=== PATIENT | male | born 1950 | race Two or more races ===

== ENCOUNTER → 2016-11-04 | Outpatient (CLI) | payer MEDICARE, BC ==
--- NOTE | 2016-11-04 10:15 | RADRPT ---
PROCEDURE: XR right knee. CLINICAL INDICATION: Knee pain TECHNIQUE: AP weightbearing, PA weightbearing, lateral weight bearing and sunrise views are availa ble for review. COMPARISON: None available FINDINGS: There is moderate to severe osteoarthrosis involving the lateral tibial femoral compartment, mild to moderate osteoarthrosis patellofemoral compartment and mild osteoarthrosis involving the medial tib ial femoral compartment. This is associated with joint space narrowing, subchondral sclerosis and os teophytosis. There is otherwise normal mineralization, architecture and alignment. No fractures are identified. No osseous lesions are identified. The soft tissues are unremarkable. IMPRESSION: Moderate to severe osteoarthrosis involving the lateral tibial femoral compartment, mild to moderate osteoarthrosis patellofemoral compartment and mild osteoarthrosis involving the medial tibial femor al compartment. RPTAT: HGDB .Raul Estrada MD, Date Time Electronically viewed and signed by .Raul Estrada MD, on 11/04/2016 10:15 .B/
== END | disposition home or self-care (01) ==
LOC: HKI 08:43
PROVIDERS: ATTEND Orthopaedic Surgery
DX: M17.11 Unilateral primary osteoarthritis, right knee (principal); M25.561 Pain in right knee; E66.9 Obesity, unspecified
CPT/HCPCS: 73564; G0463

== ENCOUNTER → 2016-11-18 | Outpatient (CLI) | payer MEDICARE, BC ==
--- NOTE | 2016-11-18 15:47 | RADRPT ---
PROCEDURE: Limited x-ray of both lower extremities. CLINICAL INDICATION: Bilateral leg pain. TECHNIQUE: Single frontal view of both lower extremities was obtained from the hips to the calves. COMPARISON: Right knee radiographs dated 11/04/2016. FINDINGS: The hips are not well seen. There are moderate to severe degenerative changes of the right knee and mild degenerative changes of the left knee. IMPRESSION: 1. Is not well seen. 2. Moderate to severe degenerative changes of the right knee. 3. Mild degenerative changes of the left knee. RPTAT: QQ .Dave Scott MD, MD Date Time Electronically viewed and signed by .Dave Scott MD, MD on 11/18/2016 15:47 .R/
== END | disposition home or self-care (01) ==
LOC: HKI 09:42
PROVIDERS: ATTEND Orthopaedic Surgery
DX: Z01.818 Encounter for other preprocedural examination (principal); M17.11 Unilateral primary osteoarthritis, right knee; M25.561 Pain in right knee
CPT/HCPCS: 77073; G0463

== ENCOUNTER 2016-11-24 11:46 | Inpatient (IN) | payer MEDICARE, BC ==
[2016-11-23 12:03] VITALS: Ht 182.9 cm; Wt 115.0 kg
[~2016-11-24] VITALS: Ht 182.9 cm; Wt 115.0 kg
[2016-11-24] VITALS (22 sets, daily range): BP systolic 109–163; BP diastolic 64–82; PULSE 72–89; RESP 14–23
[~2016-11-24 11:46] MED LIST: EPHEDrine SULFATE 50 MG/5 ML SYG ONE
[2016-11-24] MEDS ORDERED: oxyCODONE (CR) 10 MG TAB [oxyCONTIN] X1 DOSE PO ONE (14:00)
[2016-11-24] MEDS ORDERED: LACTATED RINGER'S 1,000 ML IV SCH (14:00)
[2016-11-24] MEDS ORDERED: CELECOXIB 400 MG PO X1 DOSE PO ONE (14:00)
[2016-11-24] MEDS ORDERED: PREGABALIN 300 MG PO X1 PO ONE (14:00)
[2016-11-24] MEDS ORDERED: traMADOL 50 MG TAB X 1 DOSE PO ONE (14:00)
[2016-11-24] MEDS ORDERED: SOD CHLORIDE 0.9% IV ONE (14:00)
[2016-11-24] MEDS ORDERED: TRANEXAMIC ACID IV ONE (14:00)
[2016-11-24] MEDS ORDERED: CEFAZOLIN 2GM/50 ML (PMX) 50 ML X1 BEFORE INCISION IVPB ONE (14:00)
[2016-11-24] MEDS ORDERED: TRANEXAMIC ACID IVPB SCH (16:00)
[2016-11-24] MEDS ORDERED: BUPIVACAINE LIPOSOME/PF 266 MG/20 ML VIAL INFIL SCH (16:00)
[2016-11-24] MEDS ORDERED: EXPAREL NOTE (BUPIVICAINE LIPOSOMAL) XX SCH (16:00)
[2016-11-24] MEDS ORDERED: PAIN COCKTAIL-CEFUROXIME IRR SCH ×7 (16:00)
[2016-11-24] MEDS ORDERED: SOD CHLORIDE 0.9% IVPB SCH (16:00)
--- NOTE | 2016-11-24 16:15 | HPN ---
Date/Time of Note Date/Time of Note DATE: 11/24/16 TIME: 16:14 Interval H&P Admission Note Pt. seen H&P reviewed: No system changes No changes from H&P on 11/20/16 by ELMER Dejesus MD Nov 24, 2016 16:15
[2016-11-24] MEDS ORDERED: MIDAZOLAM 1 MG/ML 2 ML INJ ONE (16:35)
[2016-11-24] MEDS ORDERED: ONDANSETRON 4 MG INJ ONE (16:35)
[2016-11-24] MEDS ORDERED: METOCLOPRAMIDE 10 MG INJ ONE (16:35)
[2016-11-24] MEDS ORDERED: CEFAZOLIN 1 GM INJ ONE ×2 (16:35→17:00)
[2016-11-24] MEDS ORDERED: PROPOFOL 100 ML ONE (16:35)
[2016-11-24] MEDS ORDERED: DEXAMETHASONE 4 MG/ML 1 ML INJ ONE (16:35)
[2016-11-24] MEDS ORDERED: FENTAnyl 50 MCG/ML VIAL ONE (16:44)
[2016-11-24] MEDS ORDERED: VANCOMYCIN 1 GM INJ ONE ×2 (16:48→17:54)
[2016-11-24] MEDS ORDERED: SODIUM CL BACTERIOSTATIC 30 ML INJ ONE (16:50)
[2016-11-24] MEDS ORDERED: LOSA1TAB20 PO (17:34)
[2016-11-24] MEDS ORDERED: CITA-104 PO (17:34)
[2016-11-24] MEDS ORDERED: FENO145T19 PO (17:34)
[2016-11-24] MEDS ORDERED: ALLO300T2 PO (17:34)
[2016-11-24] MEDS ORDERED: METO-448 PO (17:34)
[2016-11-24] MEDS ORDERED: VIT D3 (17:34)
[2016-11-24] MEDS ORDERED: LEVO100T87 PO (17:34)
[2016-11-24] MEDS ORDERED: PANT40TA3 PO (17:34)
[2016-11-24] MEDS ORDERED: ATOR20TA65 PO (17:34)
[2016-11-24] MEDS ORDERED: SENN-88 PO (17:34)
[2016-11-24] MEDS ORDERED: POLYMYXIN B 500000 UNIT INJ ONE (17:53)
[2016-11-24] MEDS ORDERED: BACITRACIN 50000 UNITS INJ ONE (17:54)
[2016-11-24] MEDS ORDERED: MEPERIDINE 25 MG INJ IV PRN (18:00)
[2016-11-24] MEDS ORDERED: HYDROmorphONE (0.2 MG/ML) 10ML SYG IV PRN ×3 (18:00)
[2016-11-24] MEDS ORDERED: METOCLOPRAMIDE 10 MG INJ IV PRN (18:00)
[2016-11-24] MEDS ORDERED: ONDANSETRON 4 MG INJ IV PRN ×2 (18:00→19:30)
[2016-11-24] MEDS ORDERED: DIPHENHYDRAMINE 50 MG INJ IV PRN (18:00)
[2016-11-24] MEDS ORDERED: PROPOFOL 60 ML ONE (18:52)
[2016-11-24] MEDS: LACTATED RINGER'S 1,000 ML IV SCH (19:21)
--- NOTE | 2016-11-24 19:29 | PN ---
Date/Time of Note Date/Time of Note DATE: 11/24/16 TIME: 19:27 Assessment/Plan Lines/Catheters IV Catheter Type (from Nrsg): Saline Lock Assessment/Plan Assessment/Plan Stable in PACU, s/p right TKA -cont abx -pain meds as needed -ASA/SCDs for DVT prophylaxis -OOB with PT -check AM labs -monitor drain -d/c alfredo in AM XR of the right knee is pending at this time Subjective 24 Hr Interval Summary Stable in PACU. Moving all extremities. Denies any pain. Exam/Review of Systems Vital Signs Vitals Vital Signs Date Time Temp Pulse Resp B/P Pulse Ox O2 Delivery O2 Flow Rate FiO2 11/24/16 14:26 98.3 72 144/64 98 Intake and Output 11/23/16 11/23/16 11/24/16 15:00 23:00 07:00 Intake Total 0 ml Balance 0 ml Exam Free Text/Dictation Dressing dry Incision clean, dry, and intact without redness or drainage Thigh soft 5/5 Quadriceps, Tibialis Anterior, EHL, Gastroc, Soleus, Peroneals Normal sensation Palpable DT/PT, CR <2 sec No distal edema PETER HAMMOND PA-C Nov 24, 2016 19:29
--- NOTE | 2016-11-24 19:29 | OPPN ---
Date/Time of Note Date/Time of Note DATE: 11/24/16 TIME: 19:28 Operative/Procedure Note Dictation # [id number] Pre-Operative Diagnosis Right Knee OA Post-Operative Diagnosis Same Procedure Right TKA Surgeon: ELMER PICKARD MD [employer] Technician: PETER HAMMOND PA-C Anesthesiologist: REGINE DOBBS MD Findings Severe OA Blood Usage/Administration None Implants/Grafts Depuy Attune TKA Estimated blood loss: 50 - 100 ml's Drains Hemovac x 1 Specimens Bone and soft tissue Complications: None Anesthesia type: spinal ELMER PICKARD MD Nov 24, 2016 19:29
[2016-11-24] MEDS ORDERED: ASPIRIN (EC) 325 MG TAB PO ONE (19:30)
[2016-11-24] MEDS ORDERED: oxyCODONE 5 MG TAB PO PRN (19:30)
[2016-11-24] MEDS ORDERED: BISACODYL 10 MG SUPP PR PRN (19:30)
[2016-11-24] MEDS ORDERED: DIPHENHYDRAMINE 25 MG CAP PO PRN (19:30)
[2016-11-24] MEDS ORDERED: MAGNESIUM HYDROXIDE 30ML CUP PO PRN (19:30)
[2016-11-24] MEDS ORDERED: NACL 0.9% 3 ML SYG IV SCH (19:30)
[2016-11-24] MEDS ORDERED: HYDROmorphONE 1 MG/ML SYG IV PRN (19:30)
[2016-11-24] MEDS ORDERED: NA PHOSPHATE/BIPHOS 133 ML ENEMA PR PRN (19:30)
--- NOTE | 2016-11-24 19:41 | OPR ---
DATE OF OPERATION: PREOPERATIVE DIAGNOSIS: Right knee osteoarthritis. POSTOPERATIVE DIAGNOSIS: Right knee osteoarthritis. OPERATION PERFORMED: Right total knee arthroplasty. SURGEON: Elmer Pickard MD RN LABOR DELIVERY: NARCISA Fay COMPONENTS USED: DePuy Attune size 8 femoral component, size 8 tibial baseplate , 5 mm polyethylene insert and a 41 patellar button. ANESTHESIA: Spinal plus general endotracheal intubation plus periarticular injection. ANESTHESIOLOGIST: Mamta Fletcher MD TOURNIQUET TIME: 70 minutes. ESTIMATED BLOOD LOSS: 50 mL INTRAVENOUS FLUIDS: 2400 mL crystalloid. SPECIMENS: Bone and soft tissue. DRAINS: Hemovac x1. COMPLICATIONS: None. DISPOSITION: The patient tolerated the procedure well, was taken to the recovery room in stable condition. INDICATIONS: The patient is a 66-year-old gentleman who has had progressive worsening pain in the right knee with radiographic evidence of severe osteoarthritis. He has failed nonsurgical means of treatment to control his pain including activity modifications, pain medications, intra-articular injections and ambulatory assist devices. Despite these measures, he has had worsening pain, and I felt he would benefit from a total knee arthroplasty. The risks, benefits, and alternatives of the procedure were explained in detail to the patient. I explained the risks of the surgery to include but not be limited to, bleeding and possible need for blood transfusion; infection; pain; stiffness; neurovascular injury with possible numbness, weakness, and/or paralysis anywhere from the knee down to the toes; fracture; instability; dislocation; wear and/or loosening of the prosthesis and possible need for future revision; blood clots; pulmonary embolism; and anesthetic complications such as heart attack, stroke, GI bleed, pneumonia, and/or . Ample time was allowed for the patient to ask questions, all of which were addressed and answered. The patient understood the risks involved and wished to proceed. Informed consent was signed prior to the procedure. PROCEDURE: The patient's right knee was initialed with a marking pen in the preoperative area to identify the correct operative site. The patient was brought to the operating room and transferred from the [facility] to the operating table where a spinal anesthetic was administered. The patient was then anesthetized and intubated. A Champagne catheter was placed. A timeout was performed to confirm that the right leg was the correct operative site. The patient was given 2 g of Ancef within one hour prior to the procedure. A tourniquet was placed on the operative proximal thigh. The operative knee and lower extremity were prepped and draped in the usual sterile fashion. The operative lower extremity was elevated and exsanguinated with an Esmarch tourniquet. The proximal thigh tourniquet was inflated to 300 mmHg. The knee was flexed. A midline incision was made and carried down through the subcutaneous tissue and fat with sharp dissection. Limited medial and lateral flaps were raised. A median parapatellar arthrotomy approach was performed. Synovial fluid was normal in color and consistency. The patella was everted and the knee flexed. There were severe tricompartmental osteoarthritic changes noted. A medial release was performed at the joint line to the midcoronal plane. The ACL and PCL and remnants of the menisci were excised. The stepped drill was used to open up the femoral canal which was irrigated and sucked dry. The intramedullary guide emelyn was passed up the femur, and the distal cutting block was pinned into place for a 6-degree valgus cut, taking 10 mm of bone off distally. The oscillating saw was used to make the cut. The tibia was subluxed anteriorly. The tibial cutoff jig was placed over the center of the talus distally and over the junction of the medial and middle third of the tibial tubercle proximally. The guide was pinned into place and the oscillating saw was used to make the cut. The tibia was sized. The extension gap was checked and accommodated a 5 mm spacer block with the knee in full extension. There was no varus or valgus instability. At this point, the femur was sized with the posterior referencing guide. Two holes were drilled in 3 degrees of external rotation. The two holes were in line with the transepicondylar axis, perpendicular to Coffee's line, and in line with the tibial cutoff jig brought up with the knee flexed 90 degrees and tensed with 2 lamina spreaders, suggesting the femoral rotation was correct. The four-in-one cutting block was pinned into place. The anterior and posterior cuts and chamfer cuts were made with the oscillating saw. The flexion gap was checked and accommodated the 5 mm spacer block at 90 degrees. There was no varus or valgus instability, suggesting the flexion and extension gaps were now equal. The central box was cut out on the femur. The tibia was drilled and punched in proper rotation. Trial components were placed into position with a trial insert. The patella was cut down from 28 down to 17 mm and sized. Three holes were drilled and the trial button placed in position. With all the trials now in place, the knee was taken through range of motion and came to full extension as evidenced by the fact that with the foot on my abdomen and axial loading, there was no tendency for the knee to flex. The knee was able to be flexed to 125 degrees with good patellar tracking with no lateral tilt or subluxation. At this point, I was satisfied with the overall range of motion, stability, and patellar tracking. The trials were removed. The real components were opened. Two bags of cement were mixed, one with and one without premixed antibiotic. The knee was irrigated with antibiotic saline and sucked dry. Once the cement was in a doughy stage, the real components were cemented into place. The knee was held in full extension, and the patellar component was held with a patellar clamp. All excess cement was removed with curettes. As the cement was hardening, the synovial/capsular layer was infiltrated with a mixture of 150 mg of 0.5% Bupivacaine, 8 mg of Duramorph, 300 mcg of epinephrine, 30 mg of Toradol, 100 mcg of clonidine, 750 mg of cefuroxime and 86 mL of normal saline, followed by an injection of 266 mg of liposomal Bupivacaine. A Hemovac drain was placed in the deep portion of the wound and brought out the anterolateral thigh. Once the cement was completely hardened, the trial liner was removed, and the real insert was opened. The tourniquet was let down, and there was good hemostasis. The knee was then irrigated with a mixture of Betadine/saline and then antibiotic saline with pulsatile lavage. The real insert was impacted into the tibia and reduced onto to the femur. The arthrotomy was closed with a few interrupted #1 Ethibond in a figure-of- eight fashion, and then closed in a watertight fashion with a running #2 Stratafix suture. Knee flexion was checked against gravity and came to 125 degrees. The subcutaneous layer was irrigated and closed with 2-0 Statafix, and then 3-0 Statafix and then will on the skin. The wound was covered with an occlusive dressing, and secured with cast padding and a bias dressing. The drain was secured with 3-0 nylon. The sponge and needle counts were correct at the end of the case. The patient was then awakened, extubated, and taken to the recovery room in stable condition. Dictated By: ELMER PICKARD MD EZ/NTS Conf#: [id number] DID#: [id number] MTDD
[2016-11-24 19:46] LABS: HEMATOCRIT 36.6 % (42.0-52.0); HEMOGLOBIN 12.7 g/dl (14.0-18.0)
[2016-11-24 19:53] LABS: POTASSIUM 4.7 mmol/L (3.5-5.1)
[2016-11-24 19:58] LABS: CALCIUM 8.4 mg/dl (8.4-10.2); CREATININE 1.48 mg/dl (0.61-1.24)
--- NOTE | 2016-11-24 20:06 | RADRPT ---
PROCEDURE: Right knee radiographs. CLINICAL INDICATION: Right knee pain. Postop. TECHNIQUE: Two views. Frontal and lateral. COMPARISON: 11/04/2016. FINDINGS: There is no fracture or dislocation. Anterior skin will and surgical drains are noted. There is a total right knee arthroplasty. There is no lytic or blastic lesion. Gas is present in the soft tissues from the recent surgery. IMPRESSION: 1. Satisfactory postoperative appearance of the right knee. RPTAT: QQ .Dave Scott MD, Date Time Electronically viewed and signed by .Dave Scott MD, on 11/24/2016 20:06 .R/
[2016-11-24] MEDS: DOCUSATE SODIUM 100 MG CAP PO SCH (21:25)
[2016-11-24] MEDS: ATORVASTATIN 20 MG TAB PO SCH (21:25)
[2016-11-24] MEDS: METOPROLOL 25 MG TAB PO SCH (21:26)
[2016-11-24] MEDS: PREGABALIN 25 MG CAP PO SCH (21:29)
[2016-11-24] MEDS ORDERED: TRANEXAMIC ACID IVPB ONE (22:30)
[2016-11-24] MEDS ORDERED: SOD CHLORIDE 0.9% IVPB ONE (22:30)
[2016-11-24] MEDS: CEFAZOLIN 2 GM/50 ML (PMX) 50 ML IVPB SCH (23:11)
[2016-11-25] MEDS: traMADol 50 MG TAB PO SCH ×4 (00:06→17:39)
[2016-11-25] MEDS: ACETAMINOPHEN 1000MG/100ML IV 100 ML IVPB SCH ×4 (00:07→17:43)
[2016-11-25 00:19] VITALS: BP 139/73; RESP 21
[2016-11-25 00:30] VITALS: BP 131/69; PULSE 75; RESP 16
[2016-11-25] MEDS ORDERED: TRANEXAMIC ACID IVPB ONE (01:30)
[2016-11-25] MEDS ORDERED: SOD CHLORIDE 0.9% IVPB ONE (01:30)
[2016-11-25] MEDS: LACTATED RINGER'S 1,000 ML IV SCH ×4 (03:21→19:21)
[2016-11-25 05:35] LABS: POTASSIUM 5.2 mmol/L (3.5-5.1)
[2016-11-25 05:36] LABS: HEMATOCRIT 35.4 % (42.0-52.0); HEMOGLOBIN 12.4 g/dl (14.0-18.0)
[2016-11-25 05:38] LABS: CREATININE 1.57 mg/dl (0.61-1.24)
[2016-11-25 05:39] LABS: CALCIUM 8.4 mg/dl (8.4-10.2)
[2016-11-25] MEDS: PANTOPRAZOLE (EC) 40 MG TAB PO SCH ×2 (05:50→17:39)
[2016-11-25] MEDS: CEFAZOLIN 2 GM/50 ML (PMX) 50 ML IVPB SCH ×3 (06:12→21:17)
[2016-11-25] MEDS: LEVOTHYROXINE 100 MCG TAB PO SCH (06:13)
[2016-11-25 08:03] VITALS: BP 116/60; RESP 18
[2016-11-25] MEDS: ALLOPURINOL 300 MG TAB PO SCH (08:24)
[2016-11-25] MEDS: FENOFIBRATE 145 MG TAB PO SCH (08:24)
[2016-11-25] MEDS: PREGABALIN 25 MG CAP PO SCH ×2 (08:25→19:50)
[2016-11-25] MEDS: HYDROCHLOROTHIAZIDE 25 MG TAB PO SCH (08:25)
[2016-11-25] MEDS: CITALOPRAM 20 MG TAB PO SCH (08:25)
[2016-11-25] MEDS: ASPIRIN (EC) 325 MG TAB PO SCH ×2 (08:25→19:50)
[2016-11-25] MEDS: METOPROLOL 25 MG TAB PO SCH ×2 (08:26→19:49)
[2016-11-25] MEDS: DOCUSATE SODIUM 100 MG CAP PO SCH ×2 (08:32→20:03)
--- NOTE | 2016-11-25 08:44 | PN ---
Date/Time of Note Date/Time of Note DATE: 11/25/16 TIME: 08:42 Assessment/Plan Lines/Catheters IV Catheter Type (from Nrsg): Peripheral IV Champagne in Place (from Nrsg): Yes Assessment/Plan Assessment/Plan Stable POD #1, s/p right TKA -cont abx x 24 hours additional -pain meds as needed -ASA/SCDs -OOB with PT today -monitor drain -check AM labs -d/c planning. Will plan to go home Subjective 24 Hr Interval Summary Doing well. No acute overnight events. Denies any pain. Did not start PT yesterday. Denies f/c. Exam/Review of Systems Vital Signs Vitals Vital Signs Date Time Temp Pulse Resp B/P Pulse Ox O2 Delivery O2 Flow Rate FiO2 11/25/16 08:03 98.4 76 18 116/60 94 11/25/16 00:30 Room Air 2.0 Nasal Cannula Intake and Output 11/24/16 11/24/16 11/25/16 15:00 23:00 07:00 Intake Total 2400 ml 1190 ml Output Total 170 ml 1000 ml Balance 2230 ml 190 ml Exam Free Text/Dictation Hemovac: 20cc Dressing dry Incision clean, dry, and intact without redness or drainage Thigh soft 5/5 Quadriceps, Tibialis Anterior, EHL, Gastroc, Soleus, Peroneals Normal sensation Palpable DT/PT, CR <2 sec No distal edema Results Result Diagram: 11/25/1641911/25/16419 PETER HAMMOND PA-C Nov 25, 2016 08:44
[2016-11-25] MEDS ORDERED: LOSARTAN 50 MG TAB PO SCH (09:00)
[2016-11-25] MEDS ORDERED: NON-FORMULARY/PATIENT OWN MED (Losartan-Hydrochlorothiazide (Losartan-HCTZ) 1 TAB) PO SCH (09:00)
[2016-11-25] MEDS ORDERED: CELECOXIB 200 MG CAP PO SCH (09:00)
--- NOTE | 2016-11-25 13:52 | CONS ---
DATE OF ADMISSION: 11/24/2016 DATE OF CONSULTATION: 11/25/2016 TYPE OF CONSULTATION: Postoperative medical. Dear Dr. Rasmussen: Thank you very much for allowing me to evaluate this 66-year-old male who underwen t right knee replacement yesterday. HISTORICAL EVENTS: As you well know, this patient has had progressive disabling pain involving his right knee and elected to proceed with surgery. Postoperatively, he notes mild right knee discomfor t. Denies cough, wheezing, shortness of breath, nausea, vomiting, abdominal or chest pain. PAST MEDICAL HISTORY: Includes: 1. Hypothyroidism. 2. Gout. 3. Hyperlipidemia. 4. Diabetes type 2, diet controlled. 5. Hypogonadism. 6. Nephrolithiasis. 7. Depression. 8. Right shoulder surgery x2. ALLERGIES: NONE. MEDICATIONS: 1. Allopurinol 300 per day. 2. Atorvastatin 20 per day. 3. Citalopram 40 per day. 4. Fenofibrate 145 mg per day. 5. Losartan/hydrochlorothiazide 100/12.5 per day. 6. Levothyroxine 100 mcg per day. 7. Metoprolol 25 mg every day. 8. Protonix 40 mg per day. 9. Vitamin D3 2000 units per day. SOCIAL HISTORY: greater than 45 years. Former smoker. FAMILY HISTORY: Positive for liver cancer and breast cancer. PHYSICAL EXAMINATION: GENERAL: [age] male in no acute distress. VITAL SIGNS: BP 126/80, pulse 70, respirations are 20, he was afebrile. EYES: Extraocular muscles were full. NOSE, MOUTH, AND THROAT: Normal. NECK: Supple. There was no jugular venous distention, thyroid enlargement or adenopathy. Carotids 2+, no bruits. LUNGS: Clear. HEART: Rhythm regular, no murmur. No third or fourth sound. ABDOMEN: Nontender. Liver and spleen were not palpable. No masses or tenderness were noted. EXTREMITIES: The right lower extremity was bandaged. The left calf was not tender. IMPRESSION: 1. Stable postop right knee. 2. History of hypertension. We will continue his antihypertensive therapy and monitor blood pressu re throughout. 3. Hyperlipidemia. To continue statin and fenofibrate. 4. Mild rise in serum creatinine. Will stop Celebrex and Cozaar, use Catapres as needed for elevat ed blood pressure. 5. Hyperkalemia as noted above, and to repeat a potassium later today. Dictated By: AAKASH CARVAJAL MD MR/NTS Conf#: [id number] DID#: [id number]
[2016-11-25 15:13] LABS: ADD UMIC YES; URINE BILIRUBIN (Dip) NEGATIVE (NEGATIVE); URINE BLOOD (Dip) TRACE (NEGATIVE); URINE COLOR LT. YELLOW (YELLOW); URINE GLUCOSE (Dip) NEGATIVE (NEGATIVE); URINE KETONES (Dip) NEGATIVE (NEGATIVE); URINE LEUKOCYTE ESTERASE (Dip) NEGATIVE (NEGATIVE); URINE NITRITE (Dip) NEGATIVE (NEGATIVE); URINE TOTAL PROTEIN (Dip) TRACE (NEGATIVE); URINE UROBILINOGEN (Dip) 0.2 E.U./dL (0.1-1.0)
[2016-11-25 15:36] LABS: BACTERIA,URINE FEW
[2016-11-25 19:00] VITALS: BP 117/59; RESP 18
[2016-11-25] MEDS: ATORVASTATIN 20 MG TAB PO SCH (19:50)
[2016-11-25] MEDS: oxyCODONE 5 MG TAB PO PRN (20:00)
[2016-11-26] MEDS: oxyCODONE 5 MG TAB PO PRN ×2 (00:36→09:03)
[2016-11-26] MEDS: LACTATED RINGER'S 1,000 ML IV SCH ×3 (03:21→19:21)
[2016-11-26] MEDS ORDERED: VITAMIN A & D 5 GM OINT PACKET TOP ONE (03:39)
[2016-11-26] MEDS: CEFAZOLIN 2 GM/50 ML (PMX) 50 ML IVPB SCH ×2 (05:02→13:55)
[2016-11-26] MEDS: traMADol 50 MG TAB PO SCH ×5 (05:03→23:16)
[2016-11-26] MEDS: PANTOPRAZOLE (EC) 40 MG TAB PO SCH ×2 (05:03→18:07)
[2016-11-26] MEDS: LEVOTHYROXINE 100 MCG TAB PO SCH (05:03)
[2016-11-26 05:39] LABS: HEMATOCRIT 34.2 % (42.0-52.0); HEMOGLOBIN 11.6 g/dl (14.0-18.0)
[2016-11-26 05:53] LABS: POTASSIUM 4.2 mmol/L (3.5-5.1)
[2016-11-26 05:56] LABS: CREATININE 1.84 mg/dl (0.61-1.24)
[2016-11-26 05:57] LABS: CALCIUM 8.2 mg/dl (8.4-10.2)
[2016-11-26 08:26] VITALS: BP 150/70; RESP 18
[2016-11-26] MEDS: METOPROLOL 25 MG TAB PO SCH ×2 (09:02→20:53)
[2016-11-26] MEDS: CITALOPRAM 20 MG TAB PO SCH (09:02)
[2016-11-26] MEDS: HYDROCHLOROTHIAZIDE 25 MG TAB PO SCH (09:03)
[2016-11-26] MEDS: ASPIRIN (EC) 325 MG TAB PO SCH ×2 (09:03→20:53)
[2016-11-26] MEDS: FENOFIBRATE 145 MG TAB PO SCH (09:03)
[2016-11-26] MEDS: ALLOPURINOL 300 MG TAB PO SCH (09:03)
[2016-11-26] MEDS: PREGABALIN 25 MG CAP PO SCH ×2 (09:04→20:54)
--- NOTE | 2016-11-26 09:22 | PN ---
Date/Time of Note Date/Time of Note DATE: 11/25/16 TIME: 09:20 Anesthesia note, A 66 year male s/p right knee replacement with spinl and TIVA. POD #1 denies N/V , Headache. pain is controlled. back is clean. V/s stable. Assessment/Plan VTE Prophylaxis VTE Prophylaxis Intervention: SCD's Lines/Catheters IV Catheter Type (from Nrs): Saline Lock Urinary Cath still in place: Yes Exam/Review of Systems Vital Signs Vitals Vital Signs Date Time Temp Pulse Resp B/P Pulse Ox O2 Delivery O2 Flow Rate FiO2 11/26/16 08:26 98.2 88 18 150/70 96 11/25/16 00:30 Room Air 2.0 Nasal Cannula Intake and Output 11/25/16 11/25/16 11/26/16 14:59 22:59 06:59 Intake Total 350 ml 1280 ml 1250 ml Output Total 800 ml 1190 ml Balance 350 ml 480 ml 60 ml Results Result Diagram: 11/26/16 0415 11/26/16 0415 Results 24 hrs Laboratory Tests Test 11/25/16 14:30 11/26/16 04:15 Potassium Level 4.2 4.2 Anion Gap 15 Blood Urea Nitrogen 35 H Calcium Level 8.2 L Carbon Dioxide Level 28 Chloride Level 102 Creatinine 1.84 H Glucose Level 107 Hematocrit 34.2 L Hemoglobin 11.6 L Sodium Level 141 Medications Medications Current Medications Bupivacaine Liposome (Exparel 266 Mg/ 20 ml Vial) 266 mg INTRA-OP INFIL Last administered on 11/24/16 17:30; Admin Dose 266 MG; Start 11/24/16 at 16:00; Stop 11/28/16 at 15:59 Miscellaneous Information 1 ea NOTE XX ; Start 11/24/16 at 16:00; Stop 11/28/16 at 15:59 Allopurinol (Zyloprim) 300 mg DAILY PO Last administered on 11/26/16 09:03; Admin Dose 300 MG; Start 11/25/16 at 09:00 Atorvastatin Calcium (Lipitor) 20 mg QHS PO Last administered on 11/25/16 19: 50; Admin Dose 20 MG; Start 11/24/16 at 21:00 Citalopram Hydrobromide (Celexa) 40 mg DAILY PO Last administered on 11/26/16 09:02; Admin Dose 40 MG; Start 11/25/16 at 09:00 Fenofibrate (Tricor) 145 mg DAILY PO Last administered on 11/26/16 09:03; Admin Dose 145 MG; Start 11/25/16 at 09:00 Metoprolol Tartrate 25 mg 25 mg BID PO Last administered on 11/26/16 09:02; Admin Dose 25 MG; Start 11/24/16 at 21:00 Lactated Ringer's (Lr) 1,000 ml @ 125 mls/hr Q8H IV Last administered on 05:50; Admin Dose 125 MLS/HR; Start 11/24/16 at 19:21 Tramadol HCl (Ultram) 50 mg Q6 PO Last administered on 11/26/16 05:03; Admin Dose 50 MG; Start 11/25/16 at 00:00; Stop 11/27/16 at 23:59 Oxycodone HCl (Roxicodone) 5 mg Q4H PRN PO PAIN LEVEL 1-3; Start 11/24/16 at 19 :30 Oxycodone HCl (Roxicodone) 10 mg Q4H PRN PO PAIN LEVEL 4-7 Last administered on 11/26/16 09:03; Admin Dose 10 MG; Start 11/24/16 at 19:30 Hydromorphone HCl (Dilaudid) 1 mg Q3H PRN IV PAIN LEVEL 8-10; Start 11/24/16 at 19:30 Ondansetron HCl (Zofran Inj) 4 mg Q6H PRN IV NAUSEA AND/OR VOMITING; Start at 19:30 Bisacodyl (Dulcolax Supp) 10 mg Q12H PRN ME CONSTIPATION; Start 11/24/16 at 19: 30 Magnesium Hydroxide (Milk Of Mag) 30 ml BID PRN PO CONSTIPATION Last administered on 11/25/16 19:51; Admin Dose 30 ML; Start 11/24/16 at 19:30 Sodium Biphosphate/ Sodium Phosphate (Fleet Enema) 133 ml DAILY PRN ME CONSTIPATION; Start 11/24/16 at 19:30 Diphenhydramine HCl (Benadryl) 25 mg Q6H PRN PO PRURITUS; Start 11/24/16 at 19: 30 Aspirin (Ecotrin) 325 mg BID PO Last administered on 11/26/16 09:03; Admin Dose 325 MG; Start 11/25/16 at 09:00 Pantoprazole (Protonix Tab) 40 mg BID@06,18 PO Last administered on 11/26/16 05:03; Admin Dose 40 MG; Start 11/25/16 at 06:00 Pregabalin (Lyrica) 50 mg BID PO Last administered on 11/26/16 09:04; Admin Dose 50 MG; Start 11/24/16 at 21:00 Hydrochlorothiazide (Hydrochlorothiazide) 25 mg DAILY PO Last administered on 09:03; Admin Dose 25 MG; Start 11/25/16 at 09:00 Docusate Sodium 300 mg 300 mg QHS PO ; Start 11/25/16 at 21:00 Cefazolin Sodium/ Dextrose (Ancef 2 Gm/50 ml (Pmx)) 50 ml @ 100 mls/hr Q8 IVPB Last administered on 11/26/16 05:02; Admin Dose 100 MLS/HR; Start 11/25/16 at 14:00; Stop 11/26/16 at 14:00 Clonidine (Catapres) 0.1 mg TID PO Last administered on 11/26/16 09:03; Admin Dose 0.1 MG; Start 11/25/16 at 09:00 REGINE DOBBS MD Nov 26, 2016 09:22
--- NOTE | 2016-11-26 11:02 | PN ---
Date/Time of Note Date/Time of Note DATE: 11/26/16 TIME: 11:00 Assessment/Plan Lines/Catheters IV Catheter Type (from Nrsg): Saline Lock Champagne in Place (from Nrsg): No Assessment/Plan Assessment/Plan Stable POD #2, s/p right TKA -pain meds, switch from oxycodone to norco -ASA/SCDs -OOB with PT -drain removed -check AM labs -d/c planning. Will likely go home tomorrow Subjective 24 Hr Interval Summary Doing well. No acute overnight events. Having mild pain. Progressing with PT. VSS, afebrile. Would like to go home tomorrow. Exam/Review of Systems Vital Signs Vitals Vital Signs Date Time Temp Pulse Resp B/P Pulse Ox O2 Delivery O2 Flow Rate FiO2 11/26/16 08:26 98.2 88 18 150/70 96 11/25/16 00:30 Room Air 2.0 Nasal Cannula Intake and Output 11/25/16 11/25/16 11/26/16 15:00 23:00 07:00 Intake Total 350 ml 1280 ml 1250 ml Output Total 800 ml 1190 ml Balance 350 ml 480 ml 60 ml Exam Free Text/Dictation Hemovac: 140cc Dressing dry Incision clean, dry, and intact without redness or drainage Thigh soft 5/5 Quadriceps, Tibialis Anterior, EHL, Gastroc, Soleus, Peroneals Normal sensation Palpable DT/PT, CR <2 sec No distal edema Results Result Diagram: 11/26/16 0415 11/26/16 0415 PETER HAMMOND PA-C Nov 26, 2016 11:02
--- NOTE | 2016-11-26 11:51 | CONS ---
Date/Time of Note Date/Time of Note DATE: 11/26/16 TIME: 11:49 Assessment/Plan Assessment/Plan Additional Assessment/Plan 1. Stable postop right knee. 2. History of hypertension, controlled 3. Prior noted hyperkalemia resolved. 4. Mild acute renal failure sec to vol contraction, nsaia and arb stopped, diuretic stopped today and will check post void residual and BP perioperatively Consultation Date/Type/Reason Admit Date/Time Nov 24, 2016 at 12:21 Initial Consult Date Detailed Summary Respiratory: No shortness of breath Cardiovascular: No chest pain, No lightheadedness Gastrointestinal: no complaints Genitourinary: no complaints Musculoskeletal: bone/joint pain (mild right knee pain) Exam/Review of Systems Vital Signs Vitals Vital Signs Date Time Temp Pulse Resp B/P Pulse Ox O2 Delivery O2 Flow Rate FiO2 11/26/16 08:26 98.2 88 18 150/70 96 11/25/16 00:30 Room Air 2.0 Nasal Cannula Intake and Output 11/25/16 11/25/16 11/26/16 15:00 23:00 07:00 Intake Total 350 ml 1280 ml 1250 ml Output Total 800 ml 1190 ml Balance 350 ml 480 ml 60 ml Exam Neck: No jvd Respiratory: clear to auscultation Cardiovascular: regular rate and rhythm Gastrointestinal: soft Extremities: No edema (and no calf tend bilat) Results Result Diagram: 11/26/16 0415 11/26/16 0415 Results 24 hrs Laboratory Tests Test 11/25/16 14:30 11/26/16 04:15 Potassium Level 4.2 4.2 Anion Gap 15 Blood Urea Nitrogen 35 H Calcium Level 8.2 L Carbon Dioxide Level 28 Chloride Level 102 Creatinine 1.84 H Glucose Level 107 Hematocrit 34.2 L Hemoglobin 11.6 L Sodium Level 141 Medications Medications Current Medications Bupivacaine Liposome (Exparel 266 Mg/ 20 ml Vial) 266 mg INTRA-OP INFIL Last administered on 11/24/16 17:30; Admin Dose 266 MG; Start 11/24/16 at 16:00; Stop 11/28/16 at 15:59 Miscellaneous Information 1 ea NOTE XX ; Start 11/24/16 at 16:00; Stop 11/28/16 at 15:59 Allopurinol (Zyloprim) 300 mg DAILY PO Last administered on 11/26/16 09:03; Admin Dose 300 MG; Start 11/25/16 at 09:00 Atorvastatin Calcium (Lipitor) 20 mg QHS PO Last administered on 11/25/16 19: 50; Admin Dose 20 MG; Start 11/24/16 at 21:00 Citalopram Hydrobromide (Celexa) 40 mg DAILY PO Last administered on 11/26/16 09:02; Admin Dose 40 MG; Start 11/25/16 at 09:00 Fenofibrate (Tricor) 145 mg DAILY PO Last administered on 11/26/16 09:03; Admin Dose 145 MG; Start 11/25/16 at 09:00 Metoprolol Tartrate 25 mg 25 mg BID PO Last administered on 11/26/16 09:02; Admin Dose 25 MG; Start 11/24/16 at 21:00 Lactated Ringer's (Lr) 1,000 ml @ 125 mls/hr Q8H IV Last administered on 05:50; Admin Dose 125 MLS/HR; Start 11/24/16 at 19:21 Tramadol HCl (Ultram) 50 mg Q6 PO Last administered on 11/26/16 05:03; Admin Dose 50 MG; Start 11/25/16 at 00:00; Stop 11/27/16 at 23:59 Hydromorphone HCl (Dilaudid) 1 mg Q3H PRN IV PAIN LEVEL 8-10; Start 11/24/16 at 19:30 Ondansetron HCl (Zofran Inj) 4 mg Q6H PRN IV NAUSEA AND/OR VOMITING; Start at 19:30 Bisacodyl (Dulcolax Supp) 10 mg Q12H PRN [place] CONSTIPATION; Start 11/24/16 at 19: 30 Magnesium Hydroxide (Milk Of Mag) 30 ml BID PRN PO CONSTIPATION Last administered on 11/25/16 19:51; Admin Dose 30 ML; Start 11/24/16 at 19:30 Sodium Biphosphate/ Sodium Phosphate (Fleet Enema) 133 ml DAILY PRN [place] CONSTIPATION; Start 11/24/16 at 19:30 Diphenhydramine HCl (Benadryl) 25 mg Q6H PRN PO PRURITUS; Start 11/24/16 at 19: 30 Aspirin (Ecotrin) 325 mg BID PO Last administered on 11/26/16 09:03; Admin Dose 325 MG; Start 11/25/16 at 09:00 Pantoprazole (Protonix Tab) 40 mg BID@06,18 PO Last administered on 11/26/16 05:03; Admin Dose 40 MG; Start 11/25/16 at 06:00 Pregabalin (Lyrica) 50 mg BID PO Last administered on 11/26/16 09:04; Admin Dose 50 MG; Start 11/24/16 at 21:00 Hydrochlorothiazide (Hydrochlorothiazide) 25 mg DAILY PO Last administered on 09:03; Admin Dose 25 MG; Start 11/25/16 at 09:00 Docusate Sodium 300 mg 300 mg QHS PO ; Start 11/25/16 at 21:00 Cefazolin Sodium/ Dextrose (Ancef 2 Gm/50 ml (Pmx)) 50 ml @ 100 mls/hr Q8 IVPB Last administered on 11/26/16 05:02; Admin Dose 100 MLS/HR; Start 11/25/16 at 14:00; Stop 11/26/16 at 14:00 Clonidine (Catapres) 0.1 mg TID PO Last administered on 11/26/16 09:03; Admin Dose 0.1 MG; Start 11/25/16 at 09:00 Acetaminophen/ Hydrocodone Bitart ([place] (7.5-325)) 1 tab Q4H PRN PO PAIN; Start 11/26/16 at 11:00 AAKASH CARVAJAL MD Nov 26, 2016 11:51
[2016-11-26] MEDS ORDERED: TAMSULOSIN (SR) 0.4 MG CAP PO ONE (15:00)
[2016-11-26] MEDS: HYDROCODONE/APAP (7.5/325) TAB PO PRN (16:02)
[2016-11-26 19:00] VITALS: BP 126/69; RESP 18
[2016-11-26] MEDS: ATORVASTATIN 20 MG TAB PO SCH (20:53)
[2016-11-26] MEDS: DOCUSATE SODIUM 100 MG CAP PO SCH (20:58)
[2016-11-27] MEDS: LACTATED RINGER'S 1,000 ML IV SCH (03:21)
[2016-11-27 04:20] LABS: ADD UMIC YES; URINE BILIRUBIN (Dip) NEGATIVE (NEGATIVE); URINE BLOOD (Dip) TRACE (NEGATIVE); URINE COLOR LT. YELLOW (YELLOW); URINE GLUCOSE (Dip) NEGATIVE (NEGATIVE); URINE KETONES (Dip) NEGATIVE (NEGATIVE); URINE LEUKOCYTE ESTERASE (Dip) NEGATIVE (NEGATIVE); URINE NITRITE (Dip) NEGATIVE (NEGATIVE); URINE TOTAL PROTEIN (Dip) NEGATIVE (NEGATIVE); URINE UROBILINOGEN (Dip) 0.2 E.U./dL (0.1-1.0)
[2016-11-27 04:35] LABS: BACTERIA,URINE RARE; SQUAMOUS EPITHELIAL CELL,UR RARE; URINE RBCS 0-2 /HPF (0)
[2016-11-27 06:03] LABS: HEMATOCRIT 35.5 % (42.0-52.0); HEMOGLOBIN 11.7 g/dl (14.0-18.0)
[2016-11-27 06:08] LABS: POTASSIUM 4.4 mmol/L (3.5-5.1)
[2016-11-27 06:10] LABS: CREATININE 1.31 mg/dl (0.61-1.24)
[2016-11-27] MEDS: traMADol 50 MG TAB PO SCH (06:14)
[2016-11-27] MEDS: PANTOPRAZOLE (EC) 40 MG TAB PO SCH (06:14)
[2016-11-27] MEDS: LEVOTHYROXINE 100 MCG TAB PO SCH (06:14)
--- NOTE | 2016-11-27 07:18 | PDOCDIS ---
Discharge Instructions DIAGNOSIS Discharge Diagnosis: s/p right TKA CONDITION Patient Condition: Good HOME CARE INSTRUCTIONS: Diet Instructions: Regular ACTIVITY: Activity Restrictions: Slowly Increase Activity Rest between Activity Avoid heavy lifting Do not operate Machinery Do not operate Power Tool Avoid Heavy Housework Keep Limb Elevated Bathing Restrictions: Shower FOLLOW UP/APPOINTMENTS Appointments follow up in the office on 12/04/16 OTHER ORDERS: Other Orders: S/P TKA Physical Therapy: Three times per week at home x 2 weeks Daily in Rehab/SNF WB STATUS: WBAT 1. Strengthening exercises for both upper and un-operated lower extremities. 2. Gait training with front wheeled walker 3. Active range of motion exercises to operative knee. 4. When not working on knee range of motion exercises, distal towel roll under operative ankle/distal calf to promote full extension. 5. DO NOT PUT ANYTHING BEHIND OPERATIVE KNEE!!! 6. Quadriceps and hamstring strengthening. 7. May switch to cane in contra lateral hand 6 weeks after surgery. 8. Physical Therapy can open case if nursing is not available. 9. Use Ice Machine as instructed from date of surgery while at rest 3X/day. 10. Patient requires mobile SCDs to reduce risk of developing DVT following TKA. Patient will use the mobile SCDs for 30 days postoperatively. Bathing assistance by home health aide twice weekly if Medicare patient. Occupational Therapy: Evaluation for assistive devices and ADL training. Wound Care: Keep incision dry & covered with Tegaderm until first visit with Dr. Rasmussen Anticoagulation Orders: Enteric Coated Aspirin 325 mg po bid x 6 weeks from date of surgery Follow-up:Call for an appointment with Dr. Rasmussen in 1 week after discharged from hospital at DME Orders: YUNIOR , 3-in-1 Commode, Polar ice machine, Mobile SCDs PETER HAMMOND PA-C Nov 27, 2016 07:18
[2016-11-27] MEDS ORDERED: HYDR-905 PO (07:20)
[2016-11-27] MEDS ORDERED: PANT40TA4 PO (07:20)
[2016-11-27] MEDS ORDERED: ASPI325T32 PO (07:20)
[2016-11-27] MEDS ORDERED: TRAM50TA2 PO (07:20)
[2016-11-27] MEDS ORDERED: LYRI25 PO (07:20)
[2016-11-27 07:26] VITALS: BP 142/68; RESP 18
--- NOTE | 2016-11-27 08:27 | CONS ---
Date/Time of Note Date/Time of Note DATE: 11/27/16 TIME: 08:26 Assessment/Plan Assessment/Plan Additional Assessment/Plan 1. S/P right knee surgery, doing well, labs rev 2. Acute renal failure, resolved. 3. Urinary retention resolved as post void residual is less then 100 cc 4. OK to dc per ortho and PT Consultation Date/Type/Reason Admit Date/Time Nov 24, 2016 at 12:21 Detailed Summary Respiratory: No cough, No shortness of breath Cardiovascular: No chest pain Gastrointestinal: no complaints Genitourinary: no complaints Musculoskeletal: bone/joint pain (mild right knee pain) Exam/Review of Systems Vital Signs Vitals Vital Signs Date Time Temp Pulse Resp B/P Pulse Ox O2 Delivery O2 Flow Rate FiO2 11/27/16 07:26 97.9 80 18 142/68 96 11/25/16 00:30 Room Air 2.0 Nasal Cannula Intake and Output 11/26/16 11/26/16 11/27/16 15:00 23:00 07:00 Intake Total 1890 ml 900 ml Output Total 1080 ml 1740 ml Balance 810 ml -840 ml Exam Neck: No jvd Respiratory: clear to auscultation Cardiovascular: regular rate and rhythm Extremities: No edema (and no calf tend) Results Result Diagram: 11/27/16 0445 11/27/16 0445 Results 24 hrs Laboratory Tests Test 11/26/16 13:10 11/26/16 23:30 11/27/16 04:45 Urine Random Sodium 69 Urine Bacteria RARE Urine Bilirubin NEGATIVE Urine Clarity CLEAR Urine Color LT. YELLOW Urine Glucose NEGATIVE Urine Hemoglobin TRACE Urine Ketones NEGATIVE Urine Leukocyte Esterase NEGATIVE Urine Microscopic RBC 0-2 Urine Microscopic WBC NONE SEEN Urine Nitrite NEGATIVE Urine Specific [place] 1.015 Urine Squamous Epithelial Cells RARE Urine Total Protein NEGATIVE Urine Urobilinogen 0.2 E.U./dL Urine pH 5.5 Anion Gap 12 Blood Urea Nitrogen 25 H Calcium Level 9.0 Carbon Dioxide Level 33 H Chloride Level 102 Creatinine 1.31 H Glucose Level 120 Hematocrit 35.5 L Hemoglobin 11.7 L Potassium Level 4.4 Sodium Level 143 Medications Medications Current Medications Bupivacaine Liposome (Exparel 266 Mg/ 20 ml Vial) 266 mg INTRA-OP INFIL Last administered on 11/24/16t 17:30; Admin Dose 266 MG; Start 11/24/16 at 16:00; Stop 11/28/16 at 15:59 Miscellaneous Information 1 ea NOTE XX ; Start 11/24/16 at 16:00; Stop 11/28/16 at 15:59 Allopurinol (Zyloprim) 300 mg DAILY PO Last administered on 11/26/16 09:03; Admin Dose 300 MG; Start 11/25/16 at 09:00 Atorvastatin Calcium (Lipitor) 20 mg QHS PO Last administered on 11/26/16 20: 53; Admin Dose 20 MG; Start 11/24/16 at 21:00 Citalopram Hydrobromide (Celexa) 40 mg DAILY PO Last administered on 11/26/16 09:02; Admin Dose 40 MG; Start 11/25/16 at 09:00 Fenofibrate (Tricor) 145 mg DAILY PO Last administered on 11/26/16 09:03; Admin Dose 145 MG; Start 11/25/16 at 09:00 Metoprolol Tartrate 25 mg 25 mg BID PO Last administered on 11/26/16 20:53; Admin Dose 25 MG; Start 11/24/16 at 21:00 Lactated Ringer's (Lr) 1,000 ml @ 125 mls/hr Q8H IV Last administered on 05:50; Admin Dose 125 MLS/HR; Start 11/24/16 at 19:21 Tramadol HCl (Ultram) 50 mg Q6 PO Last administered on 11/27/16 06:14; Admin Dose 50 MG; Start 11/25/16 at 00:00; Stop 11/27/16 at 23:59 Hydromorphone HCl (Dilaudid) 1 mg Q3H PRN IV PAIN LEVEL 8-10 Last administered on 11/26/16 17:12; Admin Dose 1 MG; Start 11/24/16 at 19:30 Ondansetron HCl (Zofran Inj) 4 mg Q6H PRN IV NAUSEA AND/OR VOMITING; Start at 19:30 Bisacodyl (Dulcolax Supp) 10 mg Q12H PRN [place] CONSTIPATION; Start 11/24/16 at 19: 30 Magnesium Hydroxide (Milk Of Mag) 30 ml BID PRN PO CONSTIPATION Last administered on 11/25/16 19:51; Admin Dose 30 ML; Start 11/24/16 at 19:30 Sodium Biphosphate/ Sodium Phosphate (Fleet Enema) 133 ml DAILY PRN [place] CONSTIPATION; Start 11/24/16 at 19:30 Diphenhydramine HCl (Benadryl) 25 mg Q6H PRN PO PRURITUS; Start 11/24/16 at 19: 30 Aspirin (Ecotrin) 325 mg BID PO Last administered on 11/26/16 20:53; Admin Dose 325 MG; Start 11/25/16 at 09:00 Pantoprazole (Protonix Tab) 40 mg BID@,18 PO Last administered on 11/27/16 06:14; Admin Dose 40 MG; Start 11/25/16 at 06:00 Pregabalin (Lyrica) 50 mg BID PO Last administered on 11/26/16 20:54; Admin Dose 50 MG; Start 11/24/16 at 21:00 Docusate Sodium (Colace) 300 mg QHS PO Last administered on 11/26/16 20:58; Admin Dose 300 MG; Start 11/25/16 at 21:00 Clonidine (Catapres) 0.1 mg TID PO Last administered on 11/26/16 09:03; Admin Dose 0.1 MG; Start 11/25/16 at 09:00 Acetaminophen/ Hydrocodone Bitart ([place] (7.5-325)) 1 tab Q4H PRN PO PAIN Last administered on 11/26/16 16:02; Admin Dose 1 TAB; Start 11/26/16 at 11:00 AAKASH CARVAJAL MD Nov 27, 2016 08:27
--- NOTE | 2016-11-27 08:46 | PN ---
Date/Time of Note Date/Time of Note DATE: 11/27/16 TIME: 08:45 Assessment/Plan Lines/Catheters Champagne in Place (from Nrsg): No Assessment/Plan Assessment/Plan Stable POD #3, s/p right TKA -pain meds -ASA/SCDs -OOB with PT -dressing changed today -d/c home today -follow up in the office on 12/04/16 Subjective 24 Hr Interval Summary Doing well. No acute overnight events. Pain much better controlled. Progressing with PT. Would like to go home today. Exam/Review of Systems Vital Signs Vitals Vital Signs Date Time Temp Pulse Resp B/P Pulse Ox O2 Delivery O2 Flow Rate FiO2 11/27/16 07:26 97.9 80 18 142/68 96 11/25/16 00:30 Room Air 2.0 Nasal Cannula Intake and Output 11/26/16 11/26/16 11/27/16 15:00 23:00 07:00 Intake Total 1890 ml 900 ml Output Total 1080 ml 1740 ml Balance 810 ml -840 ml Exam Free Text/Dictation Dressing dry Incision clean, dry, and intact without redness or drainage Thigh soft 5/5 Quadriceps, Tibialis Anterior, EHL, Gastroc, Soleus, Peroneals Normal sensation Palpable DT/PT, CR <2 sec No distal edema Results Result Diagram: 11/27/165 11/27/16 0445 PETER HAMMOND PA-C Nov 27, 2016 08:46
[2016-11-27] MEDS: PREGABALIN 25 MG CAP PO SCH (09:18)
[2016-11-27] MEDS: ASPIRIN (EC) 325 MG TAB PO SCH (09:18)
[2016-11-27] MEDS: FENOFIBRATE 145 MG TAB PO SCH (09:18)
[2016-11-27] MEDS: ALLOPURINOL 300 MG TAB PO SCH (09:18)
[2016-11-27] MEDS: CITALOPRAM 20 MG TAB PO SCH (09:19)
[2016-11-27] MEDS: METOPROLOL 25 MG TAB PO SCH (09:19)
[2016-11-27] MEDS: HYDROCODONE/APAP (7.5/325) TAB PO PRN (09:59)
--- NOTE | 2016-11-27 12:08 | DS ---
DATE OF ADMISSION: 11/24/2016 DATE OF DISCHARGE: 11/27/2016 CONDITION ON DISCHARGE: Stable. ADMITTING DIAGNOSIS: Advanced osteoarthritis, right knee. DISCHARGE DIAGNOSIS: Status post right total knee arthroplasty. PROCEDURE PERFORMED: Right total knee arthroplasty. HOSPITAL COURSE: This is a 66-year-old gentleman who was seen in the clinic, initially complaining of right knee pain. He had undergone conservative modalities and it was thought he would benefit from a right total knee arthroplasty. On 11/24/2016 the patient was admitted and taken to the operating room, where he underwent a right total knee arthroplasty. There were no intraoperative complications. The patient tolerated the procedure well. He was taken to the recovery room in stable condition. Pain was well controlled with oral pain medication. He was started on aspirin and SCDs for DVT prophylaxis. He remained hemodynamically stable and neurovascularly intact throughout his hospital stay. On postoperative day 1 he began physical therapy and continues to make progress. Ultimately on postoperative day 3 he was deemed clinically stable for discharge. Prior to discharge the incision was inspected and noted to be clean, dry and intact. Dressing changes were done prior to the patient going home. LABORATORY ANALYSIS: Hemoglobin 11.7, hematocrit 35.5. Chemistry panel, BUN was elevated at 25, creatinine 1.31; however, this is improved from his hospital stay. Potassium 4.4. Sodium 143, glucose of 120. DISCHARGE MEDICATIONS: 1. [place] 7.5/325 mg. 2. Tramadol 50 mg. 3. Protonix 40 mg. 4. Lyrica 50 mg. 5. Aspirin 325 mg. Additionally, the patient is to resume all of his normal home medications. DISCHARGE INSTRUCTIONS: The patient will be discharged home in stable condition. He is to resume a normal diet. Activity includes weightbearing as tolerated on the right lower extremity. He is to get physical therapy with home health. He will be discharged home on the medications noted above, and is to resume all of his normal home medications. The patient is to call the office or return to the emergency room for any concerns, including increased redness, swelling, drainage, fever or any concerns regarding the operation or site of incision. FOLLOWUP: The patient is to follow up in the office with Dr. Rasmussen on 2016. Dictated By: PETER ANGULO/CYNTHIA Conf#: [id number] DID#: [id number] MTDD
== END 2016-11-27 10:30 | disposition home or self-care (01) | DRG 470 ==
LOC: REC 12:21 → MS1 20:41
PROVIDERS: ADMIT Orthopaedic Surgery; ATTEND Orthopaedic Surgery
PROC: 0SRC0J9 Replacement of Right Knee Joint with Synthetic Substitute, Cemented, Open Approach (ICD-10-PCS; principal; 2016-11-24 16:00)
DX: M17.11 Unilateral primary osteoarthritis, right knee (principal); E87.5 Hyperkalemia; I10 Essential (primary) hypertension; E78.5 Hyperlipidemia, unspecified; E11.9 Type 2 diabetes mellitus without complications; E66.01 Morbid (severe) obesity due to excess calories; Z68.34 Body mass index [BMI] 34.0-34.9, adult; E03.9 Hypothyroidism, unspecified; Z79.82 Long term (current) use of aspirin
CPT/HCPCS: 73560; 80048; 81001; 81003; 82962; 84132; 84300; 85014; 85018; 87081; 87086; 88304; 88311; 97110; 97116; 97162; 97165; 97530; Z7610; C1776; C9290; J0131; J0171; J0690; J0697; J0735; J1100; J1170; J1885; J2250; J2274; J2405; J2765; J3010; J3370; J7120

== ENCOUNTER → 2016-12-04 | Outpatient (CLI) | payer MEDICARE, BC ==
[~2016-12-04] MED LIST changes: +ALLO300T2 PO; +ASPI325T32 PO; +ATOR20TA65 PO; +CITA-104 PO; -EPHEDrine SULFATE 50 MG/5 ML SYG ONE; +FENO145T19 PO; +HYDR-905 PO; +LEVO100T87 PO; +LOSA1TAB20 PO; +LYRI25 PO; +METO-448 PO; +PANT40TA3 PO; +PANT40TA4 PO; +SENN-88 PO; +TRAM50TA2 PO; +VIT D3
--- NOTE | 2016-12-04 11:04 | RADRPT ---
PROCEDURE: XR right knee. CLINICAL INDICATION: Knee pain. TECHNIQUE: AP and lateral weightbearing views are available for review. COMPARISON: No comparison available FINDINGS: There is a total knee replacement. There is no evidence of loosening of the prosthesis. The osseous structures are normal in mineralization, architecture and alignment No acute fracture or dislocation is seen.No osseous lesions are identified. The soft tissues are unremarkable . there is a small corley prapatellar joint effusion. IMPRESSION: Unremarkable total knee replacement. Small suprapatellar joint effusion RPTAT: HGDB .Raul Estrada MD, MD Date Time Electronically viewed and signed by .Raul Estrada MD, on 12/04/2016 11:04 .B/
--- NOTE | 2016-12-04 12:24 | HKNOTE ---
DATE OF SERVICE: 12/04/2016 INTERVAL HISTORY: The patient presents today for his first postoperative evaluation. He is now 10 days status post right total knee arthroplasty. He is doing well overall. He has been taking aspirin as recommended. He is having some moderate pain. He is working with home health. He denies any fevers or chills. He presents today for his first postoperative evaluation. PHYSICAL EXAMINATION: On exam today, he is alert and oriented x4, and in no acute distress. He is walking with a front-wheel walker. Exam of the incision demonstrates it to be clean, dry and intact. It is well healing. There is no erythema or warmth. Range of motion is 0 to 85 degrees. Varus and valgus forces are stable. Compartments are soft. He is neurovascularly intact distally. IMAGING: X-rays of the right knee were obtained today and reviewed by me. They demonstrate postsurgical changes. The femoral and tibial components are well aligned. No fracture or dislocation identified. ASSESSMENT: 10 days status post right total knee arthroplasty. PLAN: The will were removed today and Steri-Strips were applied. He is to continue with home health physical therapy and transition to an outpatient physical therapy program. He is to continue aspirin 325 mg twice daily for 6 weeks. I refilled his [place] 7.5/325 mg, quantity of 60 today. The patient is to follow up in 4 weeks for repeat evaluation. He will call the office if he has any concerns in the meantime. Dictated By: PETER BREWSTER for ELMER ANGULO/CYNTHIA Conf#: [id number] DID#: [id number] MTDD
== END | disposition home or self-care (01) ==
LOC: HKI 09:19
PROVIDERS: ATTEND Orthopaedic Surgery
DX: Z47.1 Aftercare following joint replacement surgery (principal); Z96.651 Presence of right artificial knee joint

== ENCOUNTER → 2017-01-01 | Outpatient (CLI) | payer MEDICARE, BC | END | disposition home or self-care (01) | LOC: HKI 08:49 | PROVIDERS: ATTEND Orthopaedic Surgery | DX: Z47.1 Aftercare following joint replacement surgery (principal); Z96.651 Presence of right artificial knee joint; I10 Essential (primary) hypertension; M17.11 Unilateral primary osteoarthritis, right knee ==

== ENCOUNTER → 2017-02-10 | Outpatient (CLI) | payer MEDICARE, BC ==
--- NOTE | 2017-02-10 13:43 | RADRPT ---
PROCEDURE: Right knee series CLINICAL INDICATION: PAIN TECHNIQUE: AP, lateral and sunrise views right knee were obtained. COMPARISON: Right knee series 12/04/2016 FINDINGS: There is a total right knee prosthesis in place without evidence of dislocation or loosening. No acu te fracture. Bony mineralization is normal without focal bony blastic or lytic lesions. There is a small right suprapatellar knee joint effusion. There is atherosclerotic vascular disease present. Soft tissues are otherwise unremarkable. IMPRESSION: 1. No significant change per 2. Right knee prosthesis in place without dislocation or loosening. 3. Small right knee joint effusion. RPTAT:AAJJ Physician Serafin Date Time Electronically viewed and signed by Frances Calvin Physician on 02/10/2017 13:43 /
--- NOTE | 2017-02-10 13:45 | RADRPT ---
PROCEDURE: CR Pelvis and Left Hip CLINICAL INDICATION: Pain TECHNIQUE: Radiograph is submitted including an AP pelvis and an additional image of the left hip. COMPARISON: None FINDINGS: Osseous structures: The osseous elements appear well mineralized and intact with no fracture or dest ructive process evident. Mild degenerative endplate changes is seen within the inferior lumbar spine . Hip joints: The hip joints are well-maintained. There is no distension of either joint capsule. Sacroiliac joints: The sacroiliac joints appear unremarkable with no significant sclerosis or erosio n. Soft tissues: Phleboliths are seen in the pelvis. A small emelyn-like calcification projects to the [facility] groin which is likely vascular. IMPRESSION: Unremarkable pelvis and left hip study. Physician Vasquez Date Time Electronically viewed and signed by Physician Vasquez on 02/10/2017 13:44 /
== END | disposition home or self-care (01) ==
LOC: HKI 08:52
PROVIDERS: ATTEND Orthopaedic Surgery
DX: Z09 Encounter for follow-up examination after completed treatment for conditions other than malignant neoplasm (principal); M25.561 Pain in right knee; Z96.651 Presence of right artificial knee joint; I10 Essential (primary) hypertension; E66.9 Obesity, unspecified; M10.9 Gout, unspecified; E78.00 Pure hypercholesterolemia, unspecified; M70.62 Trochanteric bursitis, left hip
CPT/HCPCS: 20610; 73502; 73562; G0463; J1030

== ENCOUNTER → 2017-05-12 | Outpatient (CLI) | payer MEDICARE, BC ==
--- NOTE | 2017-05-12 14:40 | RADRPT ---
PROCEDURE: Right knee radiographs. CLINICAL INDICATION: Right knee pain. Postop. TECHNIQUE: Three views. Weight bearing. Frontal, lateral, and patellar view. COMPARISON: 02/10/2017. FINDINGS: There is no fracture or dislocation. Vascular calcifications are present consistent with atherosclerosis. There is a total right knee arthroplasty which appears satisfactory. There is no lytic or blastic lesion. There is a small knee joint effusion. IMPRESSION: 1. Satisfactory postoperative appearance of the right knee. 2. Similar calcifications consistent with atherosclerosis. 3. Small joint effusion. RPTAT: QQ .Dave Scott MD, Date Time Electronically viewed and signed by .Dave Scott MD, on 05/12/2017 14:40 .R/
== END | disposition home or self-care (01) ==
LOC: HKI 04-14 08:53
PROVIDERS: ATTEND Orthopaedic Surgery
DX: Z47.89 Encounter for other orthopedic aftercare (principal); Z96.651 Presence of right artificial knee joint
CPT/HCPCS: 73562; G0463

== ENCOUNTER → 2018-03-01 | Outpatient (CLI) | END | disposition home or self-care (01) ==